=== PATIENT | female | born 2000 | race Caucasian/White ===

== ENCOUNTER 2020-05-26 18:47 | Emergency (ER) | payer BC, SELFPAY ==
[2020-05-26 19:11] VITALS: BP 123/75; PULSE 75; RESP 16; TEMP 36.6; O2SAT 98; BMI 35.7
--- NOTE | 2020-05-26 19:22 | HMH.EDUTC ---
[facility] Disposition Clinical Impression: Close exposure to COVID-19 virus Disposition: Home, Self-Care Condition on Discharge: Good Instructions: DI for COVID-19 (Suspected or Confirmed ), Preventing the Spread of Coronavirus Discharge Instructions Additional Instructions: *Monitor Temp, Over the counter Motrin or Tylenol as directed/as needed Tylenol every 4 hours and Motrin every 6 hours (as long as your family doctor has told you that you can take it) for fever or pain. and straight to ER if unable to lower temp less than 101.0 after medication given Follow up IMMEDIATELY for new or worsening symptoms or no Noticeable improvement over the next 48-72 hours. 911 for difficulty breathing or swallowing You were tested for today for COVID19 your test result should be back in the next 24-48 hours, you may call to the [facility] to see if your test results are back in the next 48 hours [phone] [facility] hours are 9am-9pm You was given a handout with instructions for Self Quarantine and Self isolation for while you wait on test results and what to do if they are positive If you are positive the Health Dept will be contacting you also Referrals: Shravan Sullivan MD [Primary Care Provider] - As needed Forms: Work/School Release Time of Disposition: 19:24 Medical Decision Making - Baldemar Inquiry Pt receiving controlled substance: No Baldemar was queried for this patient: No Vital Signs: 05/26/20 19:11 Temperature 98 F Temperature Source Oral Pulse Rate [Right] 75 Respiratory Rate 16 Blood Pressure [Right Arm] 123/75 Blood Pressure Mean [Right Arm] 91 Blood Pressure Source [Right Arm] Automatic Cuff Blood Pressure Position [Right Arm] Sitting 02 Sat by Pulse Oximetry 98 Oxygen Delivery Method Room Air Orders (Tests/Meds): ORDERS Category Date Time Status Covid-19 Nasal PCR ([facility]) Routine Lab 05/26/20 19:10 Received [facility] HPI - General Stated complaint: covid test Time Seen by Provider: 05/26/20 19:22 Mode of Arrival: Ambulatory Source of Information: Patient Limitations: No Limitations Description of Symptoms (Recalled from Triage Doc. by RN): exposure to covid HEENT Symptoms (Recalled from RN notes): No Resp Symptoms (Recalled from RN notes): No Skin Symptoms (Recalled from RN notes): No MS Symptoms (Recalled from RN notes): No Functional Status (Recalled from RN notes): na - History of Present Illness Provider Complaint: Patient states that she was recently around her sister that tested positive for COVID earlier today States that she isnt having any symptoms but she wants to get tested - Worker's Comp Is this a Worker's Comp case?: No [facility] History - Hepatitis A Screen Drug use history?: No High risk sexual behaviors?: No History of sexually transmitted infection?: No Currently employed?: No Childcare worker?: No Do you have indoor plumbing?: Yes Do you have electricity?: Yes Attestation statement:: This patient has been screened for Hepatitis A risk factors. I have reviewed the patient's past medical history: Yes ROS Obtained: Yes All systems reviewed & no additional complaints, Yes Systems reviewed as appropriate & no additional complaints - Constitutional Constitutional: Reports system reviewed and no additional complaints, except as docu, Denies body ache, Denies chills, Denies fever(s), Denies headache(s) - ENT Ears, Nose, Mouth, and Throat: Reports system reviewed and no additional complaints, except as docu, Denies nasal congestion, Denies nasal discharge, Denies pain with swallowing, Denies sore throat - Cardiovascular Cardiovascular: Reports system reviewed and no additional complaints, except as docu - Respiratory Respiratory: Yes system reviewed and no additional complaints, except as docu Physical Exam - General General appearance: alert, in no apparent distress - ENT ENT exam: Present: normal exam, normal oropharynx, mucous membranes moist, TM's normal bilaterally, normal e
[2020-05-26 19:43] VITALS: BP 124/70; PULSE 87; RESP 16; TEMP 36.8; O2SAT 98
--- NOTE | 2020-05-27 13:33 | PC.NURSE ---
patient notified of positive covid results
== END 2020-05-26 19:45 | disposition home or self-care (01) ==
PROVIDERS: Emergency Provider Nurse Practitioner; PCP Family Medicine
DX: U07.1 COVID-19 (principal)
CPT/HCPCS: 99202; G0463; U0003

== ENCOUNTER 2020-08-01 22:57 | Emergency (ER) | payer BC, SELFPAY ==
[2020-08-01 23:09] VITALS: BP 174/88; PULSE 115; RESP 16; TEMP 36.6; O2SAT 100; BMI 35.7
--- NOTE | 2020-08-02 00:04 | HMH.EDANIB ---
ED Disposition Clinical Impression: Dog bite Qualifiers: Encounter type: initial encounter Qualified Code(s): W54.0XXA - Bitten by dog, initial encounter Foot laceration Qualifiers: Encounter type: initial encounter Laterality: left Qualified Code(s): S91.312A - Laceration without foreign body, left foot, initial encounter Disposition: Home, Self-Care Condition on Discharge: Good Instructions: Animal Bites Additional Instructions: keep clean and call pcp in am Prescriptions: Amoxicillin/Potassium Clav [Augmentin 875-125 Tablet] 1 tab PO Q12H #20 tab Transmission Status: Pending to [id number] Referrals: Shravan Sullivan MD [Primary Care Provider] - - Critical Care Critical Care Time: No Attestation: On 08/01/20, the high probability of a clinically significant, sudden or life threatening deterioration of the following system(s) required my full and direct attention, intervention and personal management. The time I documented below is in addition to time spent performing reported procedures but includes the following listed in this critical care notation. Medical Decision Making - Medical Records Medical records reviewed: Yes: I reviewed the patient's medical records. - Baldemar Inquiry Pt receiving controlled substance: No Vital Signs: 08/01/20 23:09 Temperature 97.9 F Temperature Source Oral Pulse Rate [Right] 115 H Respiratory Rate 16 Blood Pressure [Right Arm] 174/88 H Blood Pressure Mean [Right Arm] 116 Blood Pressure Source [Right Arm] Automatic Cuff Blood Pressure Position [Right Arm] Supine 02 Sat by Pulse Oximetry 100 Oxygen Delivery Method Room Air Medical Decision Narrative: do not feel rabies treatment is indicated at this time - will give abx and use advil/tyenol and call pcp in am Animal Bite HPI - General Chief Complaint: Animal Bite Stated Complaint: AO 07/26@2230 Dog bite Lac Time Seen by Provider: 08/01/20 23:15 Mode of Arrival: Ambulatory Source of Information: Patient, Parent(s), Medical Record Limitations: No Limitations Description of Symptoms (Recalled from ER Triage Doc. by RN): Pt states she was taking the trash out and a stray dog on her porch, she went to shew it away and the dog bit her left foot. 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 - History of Present Illness HPI narrative: shooing dog away and bit on lt foot - MD complaint: animal bite Onset (ago): hour(s) Animal: dog Description of animal: unknown animal, immunizations unknown, appeared well Mechanism: bite Location: other (lt foot ) Left: foot Pain description: sharp Context: other Associated symptoms: none - Related Data Patient tetanus UTD: Yes Previous Rx's Medication Instructions Recorded Amoxicillin/Potassium Clav 1 tab PO Q12H #20 tab 08/02/20 [Augmentin 875-125 Tablet] [facility] History - Hepatitis A Screen Drug use history?: No High risk sexual behaviors?: No History of sexually transmitted infection?: No Currently employed?: No Childcare worker?: No Do you have indoor plumbing?: Yes Do you have electricity?: Yes Attestation statement:: This patient has been screened for Hepatitis A risk factors. I have reviewed the patient's past medical history: Yes Medical History: Denies:: Diabetes Mellitus Type 1, Diabetes Mellitus Type 2 - Social History Smoking Status: Current every day smoker Tobacco Type: e-cigarettes # Packs/Day (cigarettes): 1 Alcohol Intake: never Occupational Status: employed ROS Obtained: Yes All systems reviewed & no additional complaints - Constitutional Constitutional: Denies fever(s) - Eyes Eyes: Denies change in vision - ENT Ears, Nose, Mouth, and Throat: Denies epistaxis - Cardiovascular Cardiovascular: Denies chest pain - Respiratory Respiratory: Denies cough - Gastrointestinal Gastrointestingal: Denies: vomiting - Genitourinary Female Genitourinary: Denies hematuria - Musculoskeletal Musculoskeletal: R
--- NOTE | 2020-08-02 00:32 | PC.NURSE ---
Animal bite form faxed
[2020-08-02 00:41] VITALS: BP 156/72; PULSE 92; RESP 16; TEMP 36.6; O2SAT 99
== END 2020-08-02 00:44 | disposition home or self-care (01) ==
PROVIDERS: Emergency Provider Emergency Medicine; PCP Family Medicine
DX: S91.312A Laceration without foreign body, left foot, initial encounter (principal); W54.0XXA Bitten by dog, initial encounter; Y92.019 Unspecified place in single-family (private) house as the place of occurrence of the external cause
CPT/HCPCS: 12001; 99281

== ENCOUNTER → 2021-11-27 19:40 | Outpatient (CLI) | payer BC, SELFPAY ==
--- NOTE | 2021-11-27 19:59 | ECG_ITS ---
APPROVED REPORT Exam: Resting ECG HR:71 bpm ECG Measurements Heart Rate 71 AXES IN 154 P 18 QRSd 89 QRS 61 QT 368 T 23 QTc 391 Conclusion SINUS RHYTHM NORMAL ECG UNCONFIRMED REPORT Electronically signed by : Mauri Adam MD 11/29/2021 17:44:35
== END ==
PROVIDERS: PCP Family Medicine; Visit Provider Nurse Practitioner Family
DX: R07.9 Chest pain, unspecified (principal); R42 Dizziness and giddiness
CPT/HCPCS: 93005; 93225; 93226

== ENCOUNTER 2022-03-05 11:57 | Emergency (ER) | payer BC, SELFPAY ==
[2022-03-05 12:10] VITALS: BP 121/76; PULSE 71; RESP 19; TEMP 36.7; O2SAT 98; BMI 30.4
[2022-03-05 12:24] LABS: UTC Influenza A Antigen Negative (Negative)
[2022-03-05 12:25] LABS: UTC Influenza B Antigen Negative (Negative)
[2022-03-05 12:35] VITALS: BP 121/76; PULSE 71; RESP 19; TEMP 36.7; O2SAT 98
--- NOTE | 2022-03-05 12:42 | EXP.UTC ---
Discharge Plan Disposition Patient Disposition: Home, Self-Care Condition: Good Prescriptions Prescriptions: New mkncaihaqljtwmk-iyvszmvaf-KG [Bromfed DM] 2-30-10 mg/5 mL syrup 10 ml PO Q6H PRN (Reason: cold symptoms) Qty: 200 0RF Referrals Follow up/Referrals: Shravan Sullivan MD [Primary Care Provider] - See instructions Clinical Impressions Clinical Impression: Acute upper respiratory infection Instructions Patient Instructions: DI for Viral Upper Respiratory Infection -- Adult Discharge ED Provider: Merly Navarro [facility] HPI General Stated complaint: covid and flu test Mode of Arrival: Ambulatory Source of Information: Patient Limitations: No Limitations Time Seen by Provider: 03/05/22 12:40 Description of Symptoms (Recalled from Triage Doc. by RN): PATIENT C/O HEADACHE, BODY ACHES, FEVER, AND COUGH THAT STARTED LAST NIGHT HEENT Symptoms (Recalled from RN notes): Yes Resp Symptoms (Recalled from RN notes): Yes Skin Symptoms (Recalled from RN notes): No MS Symptoms (Recalled from RN notes): No Functional Status (Recalled from RN notes): WNL History of Present Illness Provider Complaint: Pt states that she started feeling very cold but was hot to touch. She states that she has had a headache, dry cough, clear drainage, and body aches. She states that she takes allergy medication daily. She denies sick contact. Related Data Previous Rx's Medication Instructions Recorded emhhininceligem-uflmydbknbixxwf-GG 10 ml PO Q6H PRN cold symptoms 03/05/22 2 mg-30 mg-10 mg/5 mL oral syrup #200 mL (Bromfed DM) Allergies Allergy/AdvReac Type Severity Reaction Status Date / Time No Known Allergies Allergy Verified 08/02/20 00:17 Worker's Comp Is this a Worker's Comp case?: No PFSH PFSH Medical History (Updated 03/05/22 @ 12:53 by Merly Navarro, [employer]) Migraine Social History (Updated 03/05/22 @ 12:22 by Lina Killian RN) Smoking Status: Current every day smoker tobacco type: e-cigarettes alcohol intake: never current occupational status: employed Travel in the last 8 weeks: None ROS Obtained: Yes All systems reviewed & no additional complaints except as documented Constitutional Constitutional: Reports as per HPI, Reports body ache, Reports chills, Reports fever(s), Reports headache(s) and Reports malaise Eyes Eyes: Reports system reviewed and no additional complaints, except as documented ENT Ears, Nose, Mouth, and Throat: Reports as per HPI, Reports headache(s), Reports nasal congestion and Reports nasal discharge Cardiovascular Cardiovascular: Reports system reviewed and no additional complaints, except as documented Respiratory Respiratory: Reports as per HPI and Reports non-productive cough Gastrointestinal Gastrointestingal: Reports system reviewed and no additional complaints, except as documented Genitourinary Female Genitourinary: Reports system reviewed and no additional complaints, except as documented Musculoskeletal Musculoskeletal: Reports as per HPI and Reports myalgias Integumentary/Breasts Skin/Breast: Reports system reviewed and no additional complaints, except as documented Neurologic Neurologic: Reports system reviewed and no additional complaints, except as documented and Reports headache(s) Endocrine Endocrine: Reports system reviewed and no additional complaints, except as documented Hematologic/Lymphatic Henatologic/Lymphatic: Reports system reviewed and no additional complaints, except as documented Allergic/Immunologic Allergic/Immunologic: Reports system reviewed and no additional complaints, except as documented Physical Exam General General appearance: alert and in no apparent distress Head Head exam: atraumatic and normocephalic Eye Eye exam: Present normal appearance ENT ENT exam: Present mucous membranes moist Expanded ENT Exam External ear exam: Present normal external inspection Nasal speculum exam: Bilateral: other (clear drainage) Mouth
[2022-03-05 19:46] LABS: Adenovirus,PCR Not Detected (NotDetected); Bordetella Pertussis Not Detected (NotDetected); Chlamydophila Pneumoniae, PCR Not Detected (NotDetected); Coronavirus 19, PCR Not Detected (NotDetected); Coronavirus 229E Not Detected (NotDetected); Coronavirus NL63 Not Detected (NotDetected); Coronavirus OC43 Not Detected (NotDetected); Coronovirus HKU1,PCR Not Detected (NotDetected); Human Metapneumovirus Not Detected (NotDetected); Influenza A, PCR Not Detected (NotDetected); Influenza AH1, 2009 Not Detected (NotDetected); Influenza AH1, PCR Not Detected (NotDetected); Influenza AH3,PCR Not Detected (NotDetected); Influenza B, PCR Not Detected (NotDetected); Mycoplasma Pneumoniae, PCR Not Detected (NotDetected); Parainfluenza 1, PCR Not Detected (NotDetected); Parainfluenza 2, PCR Not Detected (NotDetected); Parainfluenza 3, PCR Not Detected (NotDetected); Parainfluenza 4, PCR Not Detected (NotDetected); Respiratory Syncytial Virus Not Detected (NotDetected)
[2022-03-06 01:06] LABS: Rhinovirus/Enterovirus Detected (NotDetected)
== END 2022-03-05 12:57 | disposition home or self-care (01) ==
PROVIDERS: Emergency Provider Nurse Practitioner Family; PCP Family Medicine
DX: J06.9 Acute upper respiratory infection, unspecified (principal)
CPT/HCPCS: 87581; 87632; 87798; 87804; 99212; C9803; G0463; U0003; U0005

== ENCOUNTER 2022-03-18 13:56 | Emergency (ER) | payer BC, SELFPAY ==
[2022-03-18 13:57] VITALS: BP 131/75; PULSE 91; RESP 16; TEMP 37.2; O2SAT 99; BMI 31.4
--- NOTE | 2022-03-18 14:38 | HMH.EDABDPAI ---
Discharge Plan Disposition Patient Disposition: Home, Self-Care Chief Complaint: Abdominal Pain Prescriptions Prescriptions: No Action No Known Home Medications Referrals Follow up/Referrals: Shravan Sullivan MD [Primary Care Provider] - See instructions Clinical Impressions Clinical Impression: Abdominal pain Instructions Patient Instructions: DI for Acute Abdominal Pain Discharge ED Provider: Dion Bojorquez Abdominal Pain HPI General Chief Complaint: Abdominal Pain Stated Complaint: Lower RT Abdominal pain Time Seen by Provider: 03/18/22 14:38 Mode of Arrival: Ambulatory Limitations: No Limitations Description of Symptoms (Recalled from ER Triage Doc. by RN): Pt advises she woke up this am with RLQ pain that radiates into her umbilical area. Denies any vomiting or diarrhea but advises she has been nauseated. Denies any pain/burning with urination also. History of Present Illness HPI narrative: pt with rt sided abd pain with assoc nausea MD complaint: abdominal pain Onset (ago): hour(s) Consistency: intermittent Location: RUQ and RLQ Severity: moderate Quality: cramping Associated symptoms: denies other symptoms Related Data Home Medications Medication Instructions Recorded Confirmed No Known Home Medications 03/18/22 03/18/22 Allergies Allergy/AdvReac Type Severity Reaction Status Date / Time Penicillins Allergy Mild Verified 03/18/22 14:39 PFSH PFSH Medical History (Updated 03/18/22 @ 16:46 by Dion Bojorquez MD) Migraine No significant past medical history Surgical History (Updated 03/18/22 @ 14:35 by Elmira Lobato, RN) No significant past surgical history Social History Smoking Status: Never smoker alcohol intake: never current occupational status: employed Travel in the last 8 weeks: None ROS Obtained: Yes All systems reviewed & no additional complaints except as documented Physical Exam General General appearance: alert Head Head exam: normocephalic Eye Eye exam: Present PERRL and EOMI; Absent scleral icterus ENT ENT exam: Present mucous membranes moist Neck Neck exam: Present trachea midline Respiratory Respiratory exam: Present normal lung sounds bilaterally Cardiovascular Cardiovascular exam: Present regular rate Abdominal Exam Abdominal exam: Present soft, tenderness and Mera's sign; Absent guarding or rebound Abdominal tenderness: Present RUQ, RLQ and moderate Extremities Exam Extremities exam: Present full ROM Neurological Exam Neurological exam: Present alert, oriented X3 and CN II-XII intact Psychiatric Psychiatric exam: Present normal affect Skin Skin exam: Absent rash Medical Decision Making Medical Records Medical records reviewed: Yes I reviewed the patient's medical records. Baldemar Inquiry Pt receiving controlled substance: No Vital Signs: 03/18/22 13:57 Temperature 98.9 F Temperature Source Oral Pulse Rate [Right] 91 H Respiratory Rate 16 Blood Pressure [Left Arm] 131/75 Blood Pressure Mean [Left Arm] 93 Blood Pressure Source [Left Arm] Automatic Cuff Blood Pressure Position [Left Arm] Sitting 02 Sat by Pulse Oximetry 99 Oxygen Delivery Method Room Air Lab Data Lab results reviewed: Yes I reviewed the patient's lab results. Lab Results 03/18/22 14:18: WBC 6.4, RBC 3.80 L, Hgb 13.0, Hct 35.3 L, MCV 92.9, MCH 34.3 H, MCHC 36.9 H, RDW 12.3, Plt Count 300, MPV 7.9, Neut % (Auto) 65.7, Lymph % (Auto) 28.1, [place] % (Auto) 4.8, Eos % (Auto) 0.9, Baso % (Auto) 0.5, Neut # (Auto) 4.2, Lymph # (Auto) 1.8, [place] # (Auto) 0.3, Eos # (Auto) 0.1, Baso # (Auto) 0.0 03/18/22 14:18: Urine HCG, Qual Negative 03/18/22 14:18: Sodium 142, Potassium 3.9, Chloride 102, Carbon Dioxide 29, Anion Gap 14.9, BUN 10, Creatinine 0.80, Estimated Creat Clear 155, Estimated GFR 91, Est GFR ( Amer) 110, Glucose 84, Calcium 9.0, Total Bilirubin 0.4, AST 31, ALT 16, Alk
--- NOTE | 2022-03-18 14:42 | CT_ITS ---
FINAL REPORT CLINICAL HISTORY: right lower quad pain FINDINGS: Technique: The patient was injected with intravenous contrast. Axial images through the abdomen and pelvis were performed. This study was performed with techniques to keep radiation doses as low as reasonably achievable (ALARA). Individualized dose reduction techniques using automated exposure control or adjustment of mA and/or kV according to the patient's size were employed. Abdomen: The lung bases are clear. The liver is normal in size and attenuation. There is nonspecific mild gallbladder wall thickening. The spleen is unremarkable. The adrenals are normal. The pancreas is unremarkable. The kidneys enhance appropriately. The aorta is normal in caliber. There is no free fluid or adenopathy. Pelvis: The appendix is normal. The urinary bladder is unremarkable. There is no free fluid or adenopathy. On the bone window images there are 6 lumbar type vertebrae. 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 IMPRESSION: No acute intra-abdominal or intra process. Mild gallbladder wall thickening, nonspecific Reviewed, Interpreted and Dictated by William Tee III, MD Transcribed by Esme Raines Authenticated and [facility]
[2022-03-18 14:47] LABS: Microscopic, Urine URINE MICROSCOPIC (MICROSCOPIC)
[2022-03-18 14:51] LABS: Appearance,Urine SL CLOUDY (Clear); Bilirubin,Urine Negative (Negative); Blood, Urine 3+ (Negative); Color,Urine DK YELLOW (Yellow); Glucose,Urine (UA) Negative (Negative); Ketones,Urine Negative (Negative); Leukocyte Esterase,Urine Negative (Negative); Nitrate,Urine Negative (Negative); Protein,Urine Negative (Negative); Urobilinogen,Urine 0.2 EU/dl (0.2)
[2022-03-18 14:53] LABS: Urine Pregnancy, HCG Qual. Negative (Negative)
[2022-03-18 15:00] LABS: Basophils % 0.5 % (0.1-2.0); Eosinophils # 0.1 K/mm3 (0.0-0.4); Eosinophils % 0.9 % (0.1-12.0); Hematocrit 35.3 % (37.0-47.0); Lymphocytes # 1.8 K/mm3 (0.7-4.5); Lymphocytes % 28.1 % (10-50); Mean Corpuscular HGB Conc 36.9 g/dL (31.8-35.4); Mean Corpuscular Hemoglobin 34.3 pg (27.0-31.2); Mean Corpuscular Volume 92.9 fl (81-99); Mean Platelet Volume 7.9 fl (7.4-10.4); Monocytes # 0.3 K/mm3 (0.1-1.0); Monocytes % 4.8 % (1.7-9.3); Neutrophils # 4.2 K/mm3 (1.8-7.8); Neutrophils % 65.7 % (37.0-80.0); Platelet Count 300 K/mm3 (142-424); Red Cell Distribution Width 12.3 % (11.5-17.5); White Blood Count 6.4 K/mm3 (4.8-10.8)
[2022-03-18 15:08] LABS: Bacteria,Urine Trace /lpf; WBC,Urine Occasional #/hpf (0-3)
[2022-03-18 15:08] LABS: Chloride 102 mmol/L (98-107); Potassium 3.9 mmoL/L (3.5-5.1); Sodium 142 mmol/L (136-145)
[2022-03-18 15:10] LABS: Alanine Aminotransferase 16 U/L (12-78); Aspartate Amino Transferase 31 U/L (14-36); Blood Urea Nitrogen 10 mg/dl (7-17); Creatinine Clearance Estimated 155 mL/min (50-200); Estimated Glomerular Filt Rate 91 ml/min (>60); GFR (African American) 110 ML/MIN (>60)
[2022-03-18 15:11] LABS: Albumin Level 4.6 g/dl (3.5-5.0); Albumin/Globulin Ratio 1.5 (1.1-1.8); Alkaline Phosphatase 64 U/L (38-126); Anion Gap 14.9 mEq/L (5-15); Bilirubin,Total 0.4 mg/dl (0.2-1.3); Carbon Dioxide 29 mmol/L (22.0-30.0); Glucose 84 mg/dl (74-100); Total Protein,Serum 7.6 g/dl (6.3-8.2)
--- NOTE | 2022-03-18 16:00 | PC.NURSE ---
Rounded on pt at this time and updated on POC. No new needs
[2022-03-18 16:58] VITALS: BP 117/78; PULSE 82; RESP 16; TEMP 37; O2SAT 100
== END 2022-03-18 16:59 | disposition home or self-care (01) ==
PROVIDERS: Emergency Provider Emergency Medicine; PCP Family Medicine
DX: R10.31 Right lower quadrant pain (principal); R11.0 Nausea; Z88.0 Allergy status to penicillin
CPT/HCPCS: 74177; 80053; 81001; 81025; 85025; 99285; Q9967

== ENCOUNTER → 2022-03-22 08:13 | Outpatient (CLI) | payer BC, SELFPAY ==
--- NOTE | 2022-03-22 08:19 | US_ITS ---
FINAL REPORT CLINICAL HISTORY: RUQ PAIN FINDINGS: Sonographic images of the right upper quadrant were obtained. The pancreas is partially obscured.The liver has an unremarkable appearance.The gallbladder appears normal without evidence of gallstones.There is no evidence of biliary ductal dilatation.The common duct measures 3mm. Limited images of the right kidney are unremarkable. IMPRESSION: Unremarkable right upper quadrant ultrasound. Reviewed, Interpreted and Dictated by William Tee III, MD Transcribed by Farzanhe Evangelista Authenticated and [facility]
== END ==
LOC: RAD 08:14
PROVIDERS: PCP Family Medicine; Visit Provider Physician Assistant
DX: R10.11 Right upper quadrant pain (principal)
CPT/HCPCS: 76705

== ENCOUNTER → 2022-04-05 10:17 | Outpatient (CLI) | payer BC, SELFPAY ==
--- NOTE | 2022-04-05 10:21 | NM_ITS ---
FINAL REPORT CLINICAL HISTORY: RUQ PAIN 10:40 am 8.02 [facility]ci tc choletec 11:55am 1.8 mcg of cck some pain during cck FINDINGS: HEPATOBILIARY SCAN WITH CCK INJECTION Following intravenous administration of approximately 8.02 of technetium Choletec, multiple scintigraphic images were obtained. The hepatic parenchymal phase shows homogeneous distribution of the tracer throughout the liver. Prompt appearance of tracer is noted in the intrahepatic and extrahepatic biliary systems. The gallbladder visualizes normal. Biliary to bowel transit is within normal limits. Following intravenous injection of 1.8 mcg of CCK, gallbladder ejection fraction is estimated to be 91 %. IMPRESSION: Normal gallbladder ejection fraction of 91 %. Reviewed, Interpreted and Dictated by Mack Jones MD Transcribed by Rock Gonzalez Authenticated and [facility]
== END ==
LOC: RAD 10:17
PROVIDERS: PCP Family Medicine; Visit Provider Nurse Practitioner Family
DX: R10.11 Right upper quadrant pain (principal)
CPT/HCPCS: 78227; A9537; J2805

== ENCOUNTER 2022-05-15 15:07 | Emergency (ER) | payer BC, SELFPAY ==
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
[2022-05-15 15:21] VITALS: BP 156/76; PULSE 80; RESP 16; TEMP 37.1; O2SAT 100; BMI 31.3
[2022-05-15 15:29] LABS: UTC Strep Screen (Rapid) Negative (Negative)
[2022-05-15 16:23] VITALS: BP 156/76; PULSE 80; RESP 16; TEMP 37.1
== END 2022-05-15 16:23 | disposition home or self-care (01) ==
PROVIDERS: Emergency Provider Nurse Practitioner Family; PCP Family Medicine
DX: H66.93 Otitis media, unspecified, bilateral (principal)
CPT/HCPCS: 87880; 99212; G0463

== ENCOUNTER 2022-06-26 20:46 | Emergency (ER) | payer BC, SELFPAY ==
--- NOTE | 2022-06-26 20:39 | ECG_ITS ---
APPROVED REPORT Exam: Resting ECG HR:81 bpm ECG Measurements Heart Rate 81 AXES TN 150 P 39 QRSd 89 QRS 63 QT 356 T 34 QTc 393 Conclusion SINUS RHYTHM WITH SINUS ARRHYTHMIA NORMAL ECG UNCONFIRMED REPORT Electronically signed by : Mauri Adam MD 06/27/2022 21:51:59
[2022-06-26 20:46] VITALS: BP 148/80; PULSE 98; RESP 13; TEMP 36.7; O2SAT 98; BMI 32.8
--- NOTE | 2022-06-26 20:57 | XR_ITS ---
PROCEDURE INFORMATION: Exam: XR Chest Exam date and time: 06/26/2022 9:43 PM Age: 21 years old Clinical indication: Pain; Left-sided; Additional info: Chest pain TECHNIQUE: Imaging protocol: Radiologic exam of the chest. Views: 2 views. COMPARISON: CT ABDOMEN PELVIS W CON 03/18/2022 2:58 PM FINDINGS: Lungs: Unremarkable. No consolidation. Pleural spaces: Unremarkable. No pleural effusion. No pneumothorax. Heart/Mediastinum: Unremarkable. No cardiomegaly. Bones/joints: There is slight thoracolumbar scoliosis. Bones are otherwise unremarkable. IMPRESSION: No active disease
[2022-06-26 21:00] VITALS: BP 144/88; PULSE 97; RESP 16; O2SAT 100
--- NOTE | 2022-06-26 21:19 | CT_ITS ---
PROCEDURE INFORMATION: Exam: CTA Chest With Contrast Exam date and time: 06/26/2022 9:58 PM Age: 21 years old Clinical indication: Pain; Left-sided; Additional info: Chest pain TECHNIQUE: Imaging protocol: Computed tomographic angiography of the chest with contrast. 3D rendering (Not supervised by radiologist): MIP and/or 3D reconstructed images were created by the technologist. Radiation optimization: All CT scans at this facility use at least one of these dose optimization techniques: automated exposure control; mA and/or kV adjustment per patient size (includes targeted exams where dose is matched to clinical indication); or iterative reconstruction. Contrast material: ISOVUE; Contrast volume: 70 ml; Contrast route: INTRAVENOUS (IV); Other protocol: This patient has received [address] and 0 known cardiac nuclear medicine studies in the 12 months prior to the current study. COMPARISON: CR XR CHEST 2V 06/26/2022 9:43 PM FINDINGS: Pulmonary arteries: Normal. No pulmonary emboli. Aorta: Unremarkable. No aortic aneurysm. No aortic dissection. Lungs: Small calcified granulomas and lymph nodes noted. No active pulmonary infiltrate. Pleural spaces: Unremarkable. No pneumothorax. No pleural effusion. Heart: Unremarkable. No cardiomegaly. No pericardial effusion. 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 Bones are otherwise unremarkable. Soft tissues: Unremarkable. IMPRESSION: No active disease
--- NOTE | 2022-06-26 21:26 | HMH.EDCP ---
Discharge Plan Disposition Patient Disposition: Home, Self-Care Chief Complaint: Chest Pain Prescriptions Prescriptions: No Action bupropion HCl [Wellbutrin XL] 300 mg tablet extended release 24 hr 300 mg PO DAILY Qty: 30 1RF hydroxyzine pamoate [Vistaril] 25 mg capsule 25 mg PO TID PRN (Reason: for increased anxiety) Qty: 90 0RF methylprednisolone 4 mg Tablets,Dose Pack 4 mg PO DIRECTED Qty: 21 0RF mqglhcddzcsucof-bzcurzomw-IH [Bromfed DM] 2-30-10 mg/5 mL Syrup 5 ml PO Q6H PRN (Reason: Cough) Qty: 240 0RF Referrals Follow up/Referrals: Shravan Sullivan MD [Primary Care Provider] - See instructions Clinical Impressions Clinical Impression: Atypical chest pain Instructions Patient Instructions: DI for Atypical Chest Pain Discharge ED Provider: [place] (ED),Dion Hamlin Chest Pain HPI General Chief Complaint: Chest Pain Stated Complaint: chest pain Time Seen by Provider: 06/26/22 21:26 Mode of Arrival: EMS Source of Information: Patient, Parent(s) and Medical Record Limitations: No Limitations Description of Symptoms (Recalled from ER Triage Doc. by RN): pt c/o of chest pain in the left chest in to the shoulder the pt states that the pain was ruled muscular by the [facility]. the pt states her pain was a 5/10 but is now 0/10. 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 complaint: chest pain indicative of cardiac Onset (ago): hour(s) Activity at onset: during rest Pain location: left chest Severity: moderate Quality: dull Pain radiation: none Risk Factors for CAD: Family Hx of CAD Treatments prior to or on arrival for Cardiac Chest Pain: none CATY Score for Non-Stemi Age of Patient: <30 years old Heart Rate: 70-89 bpm Systolic Blood Pressure: 120-139 mmhg Serum Creatinine: 0.40-0.79 mg/dl CHF [place] Class: I-No CHF Other Risk Factors: None Non-Stemi Risk Score: 47 Risk Stratification: 1-108 = Low Risk Related Data On Oral Contraceptives: No Previous Rx's Medication Instructions Recorded bupropion HCl 300 mg 24 hr tablet, 300 mg PO DAILY #30 tabs 05/09/22 extended release (Wellbutrin XL) hydroxyzine pamoate 25 mg capsule 25 mg PO TID PRN for increased 05/09/22 (Vistaril) anxiety #90 caps ebioszeazxuqxyx-nxqnctowqxwlbfw-VQ 5 ml PO Q6H PRN Cough #240 mL 05/15/22 2 mg-30 mg-10 mg/5 mL oral syrup (Bromfed DM) methylprednisolone 4 mg tablets in 4 mg PO DIRECTED #21 tabs 05/15/22 a dose pack Allergies Allergy/AdvReac Type Severity Reaction Status Date / Time Penicillins Allergy Mild Verified 05/02/22 11:29 [facility] Disclaimer: The information contained in this section may have been updated after the patient was seen, as this information can be updated by other users. Medical History Generalized anxiety disorder Major depressive disorder Migraine No significant past medical history Surgical History No significant past surgical history Family History Mother FHx: mental illness Sister FHx: mental illness Social History Smoking Status: Former smoker second hand exposure: No alcohol intake: current counseling given: No substance use type: denies use current occupational status: employed Travel in the last 8 weeks: None adopted: No caregiver/support person: No foster care: No household members: significant other housing: house lives independently: Yes marital status: life partner education level: high school service: No Hx Recent Travel: No sexually active: Yes caffeine: Yes physical activity: none roland/sabianism: Rochelle
[2022-06-26 21:32] VITALS: BP 120/76; PULSE 95; RESP 13; O2SAT 100
--- NOTE | 2022-06-26 21:32 | PC.NURSE ---
called lab to check on status of blood-work, states we were just looking for it. I let them know I personally labeled it and submitted to lab at 2049. Rosa Maria in the lab then stated We found it and it will just be 5 minutes . notified of lab delay.
[2022-06-26 21:39] LABS: Basophils # 0.1 K/mm3 (0-0.2); Basophils % 1.2 % (0.1-2.0); Eosinophils # 0.1 K/mm3 (0.0-0.4); Hematocrit 40.1 % (37.0-47.0); Hemoglobin 12.8 g/dL (12.2-16.2); Lymphocytes # 1.7 K/mm3 (0.7-4.5); Lymphocytes % 28.6 % (10-50); Mean Corpuscular Hemoglobin 29.3 pg (27.0-31.2); Mean Corpuscular Volume 91.6 fl (81-99); Mean Platelet Volume 8.7 fl (7.4-10.4); Monocytes # 0.3 K/mm3 (0.1-1.0); Monocytes % 4.7 % (1.7-9.3); Neutrophils # 3.9 K/mm3 (1.8-7.8); Neutrophils % 64.5 % (37.0-80.0); Platelet Count 270 K/mm3 (142-424); Red Blood Count 4.37 M/mm3 (4.20-5.40); Red Cell Distribution Width 13.2 % (11.5-17.5)
[2022-06-26 21:39] LABS: Microscopic, Urine URINE MICROSCOPIC (MICROSCOPIC)
[2022-06-26 21:42] LABS: HCG Qualitative, Serum Negative (Negative)
[2022-06-26 21:42] LABS: Appearance,Urine CLEAR (Clear); Bilirubin,Urine Negative (Negative); Blood, Urine Negative (Negative); Color,Urine YELLOW (Yellow); Glucose,Urine (UA) Negative (Negative); Ketones,Urine TRACE (Negative); Leukocyte Esterase,Urine TRACE (Negative); Nitrate,Urine Negative (Negative); Protein,Urine Negative (Negative); Urobilinogen,Urine 0.2 EU/dl (0.2)
[2022-06-26 21:43] LABS: Alanine Aminotransferase 16 U/L (12-78); Albumin Level 4.4 g/dl (3.5-5.0); Albumin/Globulin Ratio 1.6 (1.1-1.8); Alkaline Phosphatase 64 U/L (38-126); Anion Gap 7.7 mEq/L (5-15); Aspartate Amino Transferase 30 U/L (14-36); Bilirubin,Total 0.6 mg/dl (0.2-1.3); Blood Urea Nitrogen 16 mg/dl (7-17); Carbon Dioxide 27 mmol/L (22.0-30.0); Chloride 107 mmol/L (98-107); Creatinine Clearance Estimated 182 mL/min (50-200); Estimated Glomerular Filt Rate 106 ml/min (>60); GFR (African American) 128 ML/MIN (>60); Globulin 2.7 g/dL (1.3-3.2); Glucose 95 mg/dl (74-100); Potassium 3.7 mmoL/L (3.5-5.1); Sodium 138 mmol/L (136-145); Total Protein,Serum 7.1 g/dl (6.3-8.2)
--- NOTE | 2022-06-26 21:51 | PC.NURSE ---
pt to radiology
[2022-06-26 21:56] LABS: Troponin I < 0.01 ng/ml (0.00-0.034)
[2022-06-26 22:11] LABS: Squamous Epithelial Cell,Urine Occasional #/hpf (0-5); WBC,Urine Occasional #/hpf (0-3)
[2022-06-26 22:30] VITALS: BP 132/89; PULSE 82; RESP 14; O2SAT 100
[2022-06-26 22:54] VITALS: BP 123/85; PULSE 75; RESP 17; TEMP 36.8; O2SAT 99
== END 2022-06-26 22:56 | disposition home or self-care (01) ==
PROVIDERS: Emergency Provider Emergency Medicine; PCP Family Medicine
DX: R07.89 Other chest pain; F41.1 Generalized anxiety disorder; F33.9 Major depressive disorder, recurrent, unspecified; Z81.8 Family history of other mental and behavioral disorders; Z87.891 Personal history of nicotine dependence
CPT/HCPCS: 71046; 71275; 80053; 81001; 84484; 84703; 85025; 93005; 99285; Q9967

== ENCOUNTER 2022-07-14 16:57 | Emergency (ER) | payer BC, SELFPAY ==
[2022-07-14 17:05] VITALS: BP 138/74; PULSE 93; RESP 18; TEMP 37.1; O2SAT 99; BMI 29.5
--- NOTE | 2022-07-14 17:14 | EXP.UTC ---
Discharge Plan Disposition Patient Disposition: Home, Self-Care Condition: Good Prescriptions Prescriptions: No Action bupropion HCl [Wellbutrin XL] 300 mg tablet extended release 24 hr 300 mg PO DAILY Qty: 30 1RF hydroxyzine pamoate [Vistaril] 25 mg capsule 25 mg PO TID PRN (Reason: for increased anxiety) Qty: 90 0RF Referrals Follow up/Referrals: Shravan Sullivan MD [Primary Care Provider] - See instructions Activity Restrictions/Add. Instructions Additional Instructions/Restrictions: Drink extra fluids with and between meals. If you have difficulty drinking, try very small amounts of water or suck on ice chips. ? Avoid fruit juices, as these do not replace minerals and can actually increase diarrhea. ? Children and adults can use sports drinks to replenish electrolytes. Younger children and infants should use products formulated for children, like oral rehydration solutions. ? Eat food in small amounts and let your stomach recover. ? Get lots of rest. You may feel tired or weak. ? No greasy or fried foods for the next 24-48 hours BRAT diet Bananas Rice Apples and [place] ? Make sure to drink plenty of liquids ? Return if needed ? Straight to ER if any life threatening symptoms ? You was given an outpatient order for diarrhea panel, please collect specimen and bring back to outpatient lab then call back to the [facility] or follow up with family doctor for results ? Follow up with family doctor in the next 48-72 hours if no improvement or any worsening of symptoms Clinical Impressions Clinical Impression: Diarrhea Stand Alone Forms Stand Alone Forms: Work/School Release Instructions Patient Instructions: Diarrhea Discharge ED Provider: Lisa Negro [place] HPI General Stated complaint: V/D chills Time Seen by Provider: 07/14/22 17:14 History of Present Illness Provider Complaint: Patient states that she started with vomiting and diarrhea with chills States that vomiting has since stopped but she has still been having diarrhea but not as bad with some cramping Denies known fever denies abdominal pain Related Data Previous Rx's Medication Instructions Recorded bupropion HCl 300 mg 24 hr tablet, 300 mg PO DAILY #30 tabs 07/04/22 extended release (Wellbutrin XL) hydroxyzine pamoate 25 mg capsule 25 mg PO TID PRN for increased 07/04/22 (Vistaril) anxiety #90 caps Allergies Allergy/AdvReac Type Severity Reaction Status Date / Time Penicillins Allergy Mild Verified 07/04/22 11:[address] [facility] Disclaimer: The information contained in this section may have been updated after the patient was seen, as this information can be updated by other users. Medical History Generalized anxiety disorder Major depressive disorder Migraine No significant past medical history Surgical History No significant past surgical history Family History Mother FHx: mental illness Sister FHx: mental illness Social History (Updated 07/14/22 @ 17:28 by Lina Killian RN) Smoking Status: Former smoker second hand exposure: No alcohol intake: current counseling given: No substance use type: denies use current occupational status: employed Travel in the last 8 weeks: None adopted: No caregiver/support person: No foster care: No household members: significant other housing: house lives independently: Yes marital status: life partner education level: high school service: No Hx Recent Travel: No sexually active: Yes caffeine: Yes physical activity: none roland/synagogue: [employer] special roland needs: No working smoke detector in home: Yes fire extinguisher in home: No carbon monox detector in home: Yes firearms in ho
[2022-07-14 17:32] VITALS: BP 138/74; PULSE 93; RESP 18; TEMP 37.1; O2SAT 99
== END 2022-07-14 17:38 | disposition home or self-care (01) ==
PROVIDERS: Emergency Provider Nurse Practitioner; PCP Family Medicine
DX: R19.7 Diarrhea, unspecified (principal)
CPT/HCPCS: 99212; G0463

== ENCOUNTER → 2022-07-15 13:14 | Outpatient (CLI) | payer BC, SELFPAY ==
[2022-07-15 13:23] LABS: Adenovirus F 40/41, stool Not Detected (NotDetected); Astrovirus Not Detected (NotDetected); Campylobacter Not Detected (NotDetected); Clostridium Difficile A/B, PCR Not Detected (NotDetected); Cryptosporidium Not Detected (NotDetected); Cyclospora Cayetanesis Not Detected (NotDetected); Entamoeba histolytica Not Detected (NotDetected); Enteroaggregative E coli Not Detected (NotDetected); Enteropathogenic E coli Not Detected (NotDetected); Enterotoxigenic E coli Not Detected (NotDetected); Giardia lamblia Not Detected (NotDetected); Norovirus Not Detected (NotDetected); Plesimonas Shigalloides, PCR Not Detected (NotDetected); Rotavirus A Not Detected (NotDetected); Salmonella, PCR Not Detected (NotDetected); Sapovirus Not Detected (NotDetected); Shiga-like toxin E coli Not Detected (NotDetected); Shigella Enterovasive E coli Not Detected (NotDetected); Vibrio Cholerae Not Detected (NotDetected); Vibrio, PCR Not Detected (NotDetected); Yersinia Entercolitica, PCR Not Detected (NotDetected)
== END ==
PROVIDERS: PCP Family Medicine; Visit Provider Nurse Practitioner
DX: R19.7 Diarrhea, unspecified (principal)
CPT/HCPCS: 87507

== ENCOUNTER → 2022-07-24 14:44 | Outpatient (CLI) | payer BC, SELFPAY ==
--- NOTE | 2022-07-24 14:51 | XR_ITS ---
FINAL REPORT CLINICAL HISTORY: .Sprain of left ankle. FINDINGS: AP, oblique and lateral views of the left foot were obtained. There is no prior exam for comparison. There is no acute fracture or dislocation. The joint spaces are preserved. Soft tissues are normal. IMPRESSION: No acute osseous abnormality of the left foot. Reviewed, Interpreted and Dictated by Belkis Paredes MD Transcribed by Farzaneh Evangelista Authenticated and [facility]
--- NOTE | 2022-07-24 14:51 | XR_ITS ---
FINAL REPORT CLINICAL HISTORY: SPRAIN FINDINGS: AP, oblique, and lateral views of the left ankle were obtained. There is no prior exam for comparison. There is no fracture or dislocation. There is mild degenerative joint disease. The ankle mortise is intact. Soft tissues are normal. IMPRESSION: Mild degenerative joint disease. Reviewed, Interpreted and Dictated by Belkis Paredes MD Transcribed by Farzaneh Evangelista Authenticated and [facility]
== END ==
LOC: RAD 14:46
PROVIDERS: PCP Family Medicine; Visit Provider Physician Assistant
DX: M25.572 Pain in left ankle and joints of left foot (principal); S93.402A Sprain of unspecified ligament of left ankle, initial encounter
CPT/HCPCS: 73610; 73630

== ENCOUNTER 2022-07-29 17:32 | Emergency (ER) | payer BC, SELFPAY ==
[2022-07-29 17:40] VITALS: BP 138/71; PULSE 88; RESP 20; TEMP 37.3; O2SAT 99; BMI 33.0
--- NOTE | 2022-07-29 17:48 | XR_ITS ---
PROCEDURE INFORMATION: Exam: XR Right Ankle Exam date and time: 07/29/2022 6:13 PM Age: 21 years old Clinical indication: Pain; Foot; Right; Additional info: Pain- no injury TECHNIQUE: Imaging protocol: Radiologic exam of the right ankle. Views: 3 or more views. COMPARISON: No relevant prior studies available. FINDINGS: Bones/joints: Normal. Soft tissues: Possible soft tissue swelling about the ankle. IMPRESSION: Possible soft tissue swelling about the ankle. No acute osseous injury.
--- NOTE | 2022-07-29 18:13 | XR_ITS ---
PROCEDURE INFORMATION: Exam: XR Right Foot Exam date and time: 07/29/2022 6:15 PM Age: 21 years old Clinical indication: Pain; Foot; Right; Additional info: Pain- no injury TECHNIQUE: Imaging protocol: Radiologic exam of the right foot. Views: 3 or more views. COMPARISON: CR XR ANKLE RT MIN 3V 07/29/2022 6:13 PM FINDINGS: Bones/joints: Normal. Soft tissues: Normal. IMPRESSION: No acute findings.
--- NOTE | 2022-07-29 18:18 | EXP.UTC ---
Discharge Plan Disposition Patient Disposition: Home, Self-Care Condition: Good Prescriptions Prescriptions: No Action hydroxyzine pamoate [Vistaril] 25 mg capsule 25 mg PO TID PRN (Reason: for increased anxiety) Qty: 90 0RF pantoprazole 40 mg tablet,delayed release (DR/EC) 40 mg PO DAILY Label Comments: TAKE 1 TABLET BY MOUTH TWICE DAILY Ubrelvy 100 mg tablet 100 mg PO NEEDED PRN (Reason: ,) Label Comments: TAKE 1 TABLET BY MOUTH NEEDED AT ONSET OF HEADACHE, MAY REPEAT IN 2 HOURS IF HEADACHE HAS NOT RESOLVED Qulipta 10 mg tablet 10 mg PO DAILY Label Comments: TAKE 1 TABLET BY MOUTH ONCE DAILY bupropion HCl [Wellbutrin XL] 300 mg tablet extended release 24 hr 300 mg PO DAILY Referrals Follow up/Referrals: Shravan Sullivan MD [Primary Care Provider] - See instructions Activity Restrictions/Add. Instructions Additional Instructions/Restrictions: *weight bearing as tolerated *RICE, Rest the extremity, Ice 15-20 minutes 3-4 times daily, Compress- wear the jabier wrap as discussed as much as possible to help reduce swelling and pain, Elevate the extremity when at rest *Jabier wrap is for support and help control swelling, use it except in the shower. Be sure that is not to tight but not to loose either *Elevate when resting? *Ibuprofen 600-800mg every 6-8 hours as needed for pain an inflammation. If need something more can take Tylenol in between doses of Ibuprofen to help Immediately follow up with your family doctor for new or worsening of symptoms, or no noticeable improvement over the next 3-5 days Clinical Impressions Clinical Impression: Ankle pain Stand Alone Forms Stand Alone Forms: Work/School Release Instructions Patient Instructions: DI for Ankle Pain, Ibuprofen Discharge ED Provider: Lisa Negro [facility] General Stated complaint: Pain R pain(No Accident Mode of Arrival: Ambulatory Source of Information: Patient Limitations: No Limitations Time Seen by Provider: 07/29/22 18:18 Description of Symptoms (Recalled from Triage Doc. 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 07/29/22 07/29/22 extended release (Wellbutrin XL) pantoprazole 40 mg tablet,delayed 40 mg PO DAILY GERD 07/29/22 07/29/22 release ubrogepant 100 mg tablet (Ubrelvy) 100 mg PO NEEDED PRN , 07/29/22 07/29/22 Previous Rx's Medication Instructions Recorded hydroxyzine pamoate 25 mg capsule 25 mg PO TID PRN for increased 07/04/22 (Vistaril) anxiety #90 caps Allergies Allergy/AdvReac Type Severity Reaction Status Date / Time Penicillins Allergy Mild Verified 07/29/22 17:55 Worker's Comp Is this a Worker's Comp case?: No [facility] Disclaimer: The information contained in this section may have been updated after the patient was seen, as this information can be updated by other users. Medical History Generalized anxiety disorder Major depressive disorder Migraine No significant past medical history Surgical History No significant past surgical history Family History (Reviewed 05/16/22 @ 22:0
[2022-07-29 19:38] VITALS: BP 138/71; PULSE 88; RESP 20; TEMP 37.3; O2SAT 99
== END 2022-07-29 19:38 | disposition home or self-care (01) ==
PROVIDERS: Emergency Provider Nurse Practitioner; PCP Family Medicine
DX: M25.571 Pain in right ankle and joints of right foot (principal); M79.671 Pain in right foot
CPT/HCPCS: 73610; 73630; 99212; 99213; 99214; G0463

== ENCOUNTER 2022-12-08 18:43 | Emergency (ER) | payer BC, SELFPAY ==
[2022-12-08 18:44] VITALS: BP 155/93; PULSE 109; RESP 16; TEMP 36.7; O2SAT 97; BMI 32.3
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
--- NOTE | 2022-12-08 19:19 | ECG_ITS ---
APPROVED REPORT Exam: Resting ECG HR:108 bpm ECG Measurements Heart Rate 108 AXES DC 151 P 77 QRSd 88 QRS 85 QT 322 T 38 QTc 385 Conclusion SINUS TACHYCARDIA NONSPECIFIC T-WAVE ABNORMALITY ABNORMAL RHYTHM ECG UNCONFIRMED REPORT Electronically signed by : Mauri Adam MD 12/09/2022 07:09:44
--- NOTE | 2022-12-08 19:19 | HMH.EDGENADL ---
Discharge Plan Disposition Patient Disposition: Still a Patient Condition: Fair Prescriptions Prescriptions: No Action bupropion HCl [Wellbutrin XL] 300 mg tablet extended release 24 hr 300 mg PO DAILY Qty: 30 1RF hydroxyzine pamoate [Vistaril] 25 mg capsule 25 mg PO TID PRN (Reason: for increased anxiety) Qty: 90 0RF pantoprazole 40 mg tablet,delayed release (DR/EC) 40 mg PO DAILY Patient Comments: TAKE 1 TABLET BY MOUTH TWICE DAILY Ubrelvy 100 mg tablet 100 mg PO NEEDED PRN (Reason: ,) Patient Comments: TAKE 1 TABLET BY MOUTH NEEDED AT ONSET OF HEADACHE, MAY REPEAT IN 2 HOURS IF HEADACHE HAS NOT RESOLVED Qulipta 10 mg tablet 10 mg PO DAILY Patient Comments: TAKE 1 TABLET BY MOUTH ONCE DAILY Referrals Follow up/Referrals: Shravan Sullivan MD [Primary Care Provider] - See instructions Activity Restrictions/Add. Instructions Additional Instructions/Restrictions: Your symptoms today are consistent with a mild to moderate asthma exacerbation. Please take your inhaler 4 puffs every 4 hours for the next 48 hours then as needed after that. You are given a single dose of dexamethasone which is a long-acting steroid and you do not need any further steroids after today. There is no evidence of any pneumonia or bacterial infection today which is why you are not using antibiotics. Please follow with your primary care doctor as needed. Please stop smoking as well. Clinical Impressions Clinical Impression: Tachycardia, Asthma exacerbation, Encounter for smoking cessation counseling Discharge ED Provider: Stephen Thomas General Adult HPI General Chief complaint: Weakness Stated complaint: heart rate 119 fluttering Time Seen by Provider: 12/08/22 19:19 Mode of Arrival: Ambulatory Source of Information: Patient Limitations: No Limitations Description of Symptoms (Recalled from ER Triage Doc. by RN): Patient reports irregular, escalated heart rate, significant nasal congestion, dizziness, and unsteady gait since yesterday. History of Present Illness HPI narrative: Patient is a 22-year-old female presenting today with dyspnea and elevated heart rate. Denies any history of DVT or PE. No history of any coagulation problems in herself or her family. No lower extremity swelling hemoptysis. She is not on any hormone therapy or any control pills. She has had a cough over the last 24 hours and had a fever of over 101 at home yesterday. On review of systems she stated that she did in fact have a history of asthma this was not primarily discussed however she has not had any rescue inhalers or steroids since she was a small child. No wheezing during this presentation. No lower extremity edema. No chest pain. No other infectious symptoms. Related Data Home Medications Medication Instructions Recorded Confirmed atogepant 10 mg tablet (Qulipta) 10 mg PO DAILY m 07/29/22 07/29/22 pantoprazole 40 mg tablet,delayed 40 mg PO DAILY GERD 07/29/22 07/29/22 release ubrogepant 100 mg tablet (Ubrelvy) 100 mg PO NEEDED PRN , 07/29/22 07/29/22 Previous Rx's Medication Instructions Recorded hydroxyzine pamoate 25 mg capsule 25 mg PO TID PRN for increased 07/04/22 (Vistaril) anxiety #90 caps bupropion HCl 300 mg 24 hr tablet, 300 mg PO DAILY . #30 tabs 11/21/22 extended release (Wellbutrin XL) Allergies Allergy/AdvReac Type Severity Reaction Status Date / Time Penicillins Allergy Mild Verified 07/29/22 17:55 [facility] Disclaimer: The information contained in this section may have been updated after the patient was seen, as this information can be updated by other users. Medical History Generalized anxiety disorder Major depressive disorder Migraine No significant past medical history Surgical History No significant past surgical history Family History
[2022-12-08 19:25] VITALS: BP 147/91; PULSE 116; RESP 16; TEMP 36.8; O2SAT 98; BMI 32.3
--- NOTE | 2022-12-08 19:25 | XR_ITS ---
PROCEDURE INFORMATION: Exam: XR Chest Exam date and time: 12/08/2022 7:33 PM Age: 22 years old Clinical indication: Other: Patient stated irregular heart beat. ; Additional info: Dyspnea TECHNIQUE: Imaging protocol: Radiologic exam of the chest. Views: 1 view. COMPARISON: CR XR CHEST 2V 06/26/2022 9:43 PM FINDINGS: Lungs: Unremarkable. No consolidation. Pleural spaces: Unremarkable. No pleural effusion. No pneumothorax. Heart/Mediastinum: Unremarkable. No cardiomegaly. Bones/joints: Unremarkable. IMPRESSION: No acute findings.
--- NOTE | 2022-12-08 19:31 | PC.NURSE ---
RAD at for CXR
[2022-12-08 19:45] LABS: Basophils % 0.4 % (0.1-2.0); Eosinophils # 0.1 K/mm3 (0.0-0.4); Eosinophils % 1.9 % (0.1-12.0); Hematocrit 38.8 % (37.0-47.0); Hemoglobin 12.5 g/dL (12.2-16.2); Lymphocytes # 1.3 K/mm3 (0.7-4.5); Lymphocytes % 21.5 % (10-50); Mean Corpuscular HGB Conc 32.2 g/dL (31.8-35.4); Mean Corpuscular Hemoglobin 28.6 pg (27.0-31.2); Mean Corpuscular Volume 88.8 fl (81-99); Mean Platelet Volume 8.5 fl (7.4-10.4); Monocytes # 0.5 K/mm3 (0.1-1.0); Monocytes % 7.5 % (1.7-9.3); Neutrophils # 4.3 K/mm3 (1.8-7.8); Neutrophils % 68.7 % (37.0-80.0); Platelet Count 303 K/mm3 (142-424); Red Blood Count 4.37 M/mm3 (4.20-5.40); Red Cell Distribution Width 13.5 % (11.5-17.5); White Blood Count 6.2 K/mm3 (4.8-10.8)
[2022-12-08 19:51] VITALS: PULSE 111; PULSE 119
[2022-12-08 19:52] LABS: Alanine Aminotransferase 23 U/L (12-78); Albumin Level 4.3 g/dl (3.5-5.0); Albumin/Globulin Ratio 1.4 (1.1-1.8); Alkaline Phosphatase 71 U/L (38-126); Anion Gap 9.3 mEq/L (5-15); Aspartate Amino Transferase 29 U/L (14-36); Bilirubin,Total 0.6 mg/dl (0.2-1.3); Blood Urea Nitrogen 7 mg/dl (7-17); Calcium 9.1 mg/dl (8.4-10.2); Carbon Dioxide 26 mmol/L (22.0-30.0); Chloride 109 mmol/L (98-107); Creatinine Clearance Estimated 181 mL/min (50-200); Estimated Glomerular Filt Rate 105 ml/min (>60); GFR (African American) 127 ML/MIN (>60); Globulin 3.1 g/dL (1.3-3.2); Glucose 87 mg/dl (74-100); Potassium 4.3 mmoL/L (3.5-5.1); Sodium 140 mmol/L (136-145); Total Protein,Serum 7.4 g/dl (6.3-8.2)
[2022-12-08 19:57] LABS: D-Dimer 0.54 ug/mL (0.0-0.5)
[2022-12-08 20:05] LABS: NT Pro Brain Natriuretic Pep. 186 pg/mL (0-125)
--- NOTE | 2022-12-08 20:07 | PC.NURSE ---
called respiratory therapist for mdi teaching and assessment as well as admin
[2022-12-08 20:12] LABS: Troponin I < 0.01 ng/ml (0.00-0.034)
[2022-12-08 20:16] VITALS: BP 145/89; PULSE 108; RESP 18; TEMP 36.9
== END 2022-12-08 21:00 | disposition still patient (30) ==
LOC: UTC 18:46 → ER 19:07
PROVIDERS: Emergency Provider Student in an Organized Health Care Education/Training Program; PCP Family Medicine
DX: J45.901 Unspecified asthma with (acute) exacerbation (principal); R00.0 Tachycardia, unspecified; F41.1 Generalized anxiety disorder; F32.9 Major depressive disorder, single episode, unspecified; F17.200 Nicotine dependence, unspecified, uncomplicated
CPT/HCPCS: 71045; 80053; 83880; 84484; 85025; 85378; 93005; 93041; 96360; 99285

== ENCOUNTER 2023-06-11 15:54 | Emergency (ER) | payer BC, SELFPAY ==
[2023-06-11 16:10] VITALS: BP 114/75; PULSE 74; RESP 18; TEMP 36.8; O2SAT 98; BMI 35.9
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
[2023-06-11 16:34] LABS: UTC Influenza A Antigen Negative (Negative); UTC Strep Screen (Rapid) Negative (Negative)
[2023-06-11 16:35] LABS: UTC Influenza B Antigen Negative (Negative)
[2023-06-11 16:58] VITALS: BP 114/75; PULSE 74; RESP 18; TEMP 36.8; O2SAT 98
== END 2023-06-11 16:55 | disposition home or self-care (01) ==
PROVIDERS: Emergency Provider Nurse Practitioner Family; PCP Family Medicine
DX: H66.93 Otitis media, unspecified, bilateral (principal); J01.90 Acute sinusitis, unspecified; R05.9 Cough, unspecified; R09.81 Nasal congestion; R09.89 Other specified symptoms and signs involving the circulatory and respiratory systems; Z87.891 Personal history of nicotine dependence
CPT/HCPCS: 87804; 87880; 99212; 99214; G0463

== ENCOUNTER 2023-09-01 23:25 | Outpatient (CLI) | payer BC, SELFPAY ==
[2023-09-01 17:38] LABS: Basophils # 0.1 K/mm3 (0-0.2); Basophils % 2.5 % (0.1-2.0); Eosinophils # 0.1 K/mm3 (0.0-0.4); Hematocrit 39.9 % (37.0-47.0); Hemoglobin 12.9 g/dL (12.2-16.2); Lymphocytes # 1.6 K/mm3 (0.7-4.5); Mean Corpuscular HGB Conc 32.3 g/dL (31.8-35.4); Mean Corpuscular Hemoglobin 29.8 pg (27.0-31.2); Mean Corpuscular Volume 92.2 fl (81-99); Mean Platelet Volume 9.3 fl (7.4-10.4); Monocytes # 0.3 K/mm3 (0.1-1.0); Neutrophils # 2.9 K/mm3 (1.8-7.8); Neutrophils % 58.4 % (37.0-80.0); Platelet Count 296 K/mm3 (142-424); Red Blood Count 4.33 M/mm3 (4.20-5.40); Red Cell Distribution Width 13.2 % (11.5-17.5); White Blood Count 4.9 K/mm3 (4.8-10.8)
[2023-09-01 18:24] LABS: Hemoglobin A1C 5.4 % (4.0-6.0)
[2023-09-01 18:48] LABS: Alanine Aminotransferase 25 U/L (12-78); Albumin Level 4.2 g/dl (3.5-5.0); Albumin/Globulin Ratio 1.6 (1.1-1.8); Alkaline Phosphatase 67 U/L (38-126); Anion Gap 11.3 mEq/L (5-15); Aspartate Amino Transferase 30 U/L (14-36); Bilirubin,Total 1.1 mg/dl (0.2-1.3); Blood Urea Nitrogen 16 mg/dl (7-17); Calcium 9.6 mg/dl (8.4-10.2); Carbon Dioxide 25 mmol/L (22.0-30.0); Chloride 105 mmol/L (98-107); Estimated Glomerular Filt Rate 105 ml/min (>60); GFR (African American) 127 ML/MIN (>60); Globulin 2.6 g/dL (1.3-3.2); Glucose 86 mg/dl (74-100); Potassium 4.3 mmoL/L (3.5-5.1); Sodium 137 mmol/L (136-145); Total Protein,Serum 6.8 g/dl (6.3-8.2)
[2023-09-01 19:07] LABS: Free Thyroxine Index 2.5 ug/dL (5.93-13.13); T4 (Thyroxine) 8.2 ug/dl (5.53-11.0); Triiodothryronine (T3) Uptake 31 % (23.5-40.5)
[2023-09-01 19:21] LABS: Thyroid Stimulating Hormone 0.96 uIU/mL (0.465-4.68)
[2023-09-01 19:41] LABS: Vitamin B12 224 pg/mL (239-931)
[2023-09-01 20:13] LABS: Iron 127 ug/dL (37-170)
[2023-09-01 20:22] LABS: Total Iron Binding Capacity 294 ug/dL (265-497)
[2023-09-03 08:30] LABS: Thyroid Peroxidase Antibodies <9 IU/mL (0-34)
[2023-09-10 20:55] LABS: 1,25 Dihydroxy Vitamin D 57 pg/mL (.); 1,25-Dihydroxy, Vitamin D-2 <10 pg/mL (.); 1,25-Dihydroxy, Vitamin D-3 54 pg/mL (.)
== END 2023-09-01 23:59 | disposition home or self-care (01) ==
LOC: LAB.DROPOF 23:26
PROVIDERS: PCP Nurse Practitioner Psychiatric/Mental Health; Visit Provider Nurse Practitioner Psychiatric/Mental Health
DX: R53.83 Other fatigue (principal); F41.1 Generalized anxiety disorder; F32.9 Major depressive disorder, single episode, unspecified; E53.8 Deficiency of other specified B group vitamins
CPT/HCPCS: 80053; 82607; 82652; 83036; 83540; 83550; 84436; 84443; 84479; 85025; 86376

== ENCOUNTER 2024-07-01 08:17 | Emergency (ER) | payer BC, SELFPAY ==
[2024-07-01 09:13] VITALS: BP 139/87; PULSE 102; RESP 19; TEMP 37.1; O2SAT 98; BMI 38.4
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
[2024-07-01 09:32] VITALS: BP 139/87; PULSE 102; RESP 19; TEMP 37.1; O2SAT 98
[2024-07-01 10:11] LABS: UTC Influenza A Antigen Positive (Negative); UTC Influenza B Antigen Negative (Negative)
== END 2024-07-01 09:47 | disposition home or self-care (01) ==
PROVIDERS: Emergency Provider Nurse Practitioner; PCP Family Medicine
DX: J11.1 Influenza due to unidentified influenza virus with other respiratory manifestations (principal)
CPT/HCPCS: 87804; 99213; G0381